=== PATIENT | female | born 1950 | race Caucasian/White ===

== ENCOUNTER 2017-07-11 08:07 | Emergency (ER) | payer OTHER | END 2017-07-11 11:16 | disposition home or self-care (01) | LOC: D.ER 08:07 | DX: S16.1XXA Strain of muscle, fascia and tendon at neck level, initial encounter (principal); X58.XXXA Exposure to other specified factors, initial encounter; Y93.89 Activity, other specified; Y92.89 Other specified places as the place of occurrence of the external cause; M43.6 Torticollis; I10 Essential (primary) hypertension; F17.200 Nicotine dependence, unspecified, uncomplicated ==

== ENCOUNTER 2019-07-15 12:59 | Emergency (ER) | payer OTHER ==
[~2019-07-15] VITALS: Ht 162.6 cm; Wt 72.7 kg
[~2019-07-15 12:59] MED LIST: CYCLOBENZAPRINE10 MG PO
[2019-07-15 13:14] VITALS: Ht 162.6 cm; Wt 72.7 kg
[2019-07-15] MEDS ORDERED: CYCLOBENZAPRINE10 MG PO (14:05)
[2019-07-15] MEDS ORDERED: NAPROSYN500 MG PO (14:05)
[2019-07-15] MEDS ORDERED: NORVASC5 MG PO (14:07)
[2019-07-15 14:22] VITALS: BP 162/78
== END 2019-07-15 14:24 | disposition home or self-care (01) ==
LOC: D.ER 12:59
DX: S16.1XXA Strain of muscle, fascia and tendon at neck level, initial encounter (principal); I10 Essential (primary) hypertension; Z72.0 Tobacco use; R51 Headache